=== PATIENT | male | born 1990 | race Hispanic/Latino ===

== ENCOUNTER 2021-08-22 19:30 | Emergency (ER) | payer SELFPAY ==
[2021-08-22 22:32] VITALS: BP 118/80
--- NOTE | 2021-08-22 22:42 | Emergency Department Report ---
ED General Adult HPI - General Chief complaint: Neck Pain/Injury Stated complaint: SPINAL/NECK INJURY Time Seen by Provider: 08/22/21 22:28 Source: patient Mode of arrival: Ambulatory Limitations: No Limitations - History of Present Illness Initial comments: 30-year-old male patient presents to the emergency department with complaints of neck pain and upper back pain starting yesterday. 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 There was no preceding fall, trauma, or injury. Patient has no known history of cervical disc issues or spinal stenosis. No medications prior to arrival. Denies fever, headache, rash, paresthesias, numbness, weakness, paralysis. Denies all other complaints at this time. - Related Data Previous Rx's Medication Instructions Recorded Last Taken Type Lidocaine [Lidoderm] 1 each TP BID #20 adh..patch 08/22/21 Unknown Rx Naproxen 500 mg PO BID #20 tablet 08/22/21 Unknown Rx Allergies Allergy/AdvReac Type Severity Reaction Status Date / Time No Known Allergies Allergy Verified 08/22/21 22:24 ED Review of Systems ROS: Stated complaint: SPINAL/NECK INJURY Other details as noted in HPI Other: CARDIOVASCULAR: Negative for chest pain. PULMONARY: Negative for dyspnea. GASTROINTESTINAL: Negative for abdominal pain. MUSCULOSKELETAL: Positive for back pain and neck pain. NEUROLOGICAL: Negative for headache. INTEGUMENTARY: Negative for ecchymosis. ED Past Medical Hx - Past Medical History Previous Medical History?: No - Medications Home Medications: Home Medications Medication Instructions Recorded Confirmed Last Taken Type Lidocaine [Lidoderm] 1 each TP BID #20 adh..patch 08/22/21 Unknown Rx Naproxen 500 mg PO BID #20 tablet 08/22/21 Unknown Rx ED Physical Exam - General Limitations: No Limitations - Other Other exam information: General: Awake, appropriately interactive, no acute distress. Neck: Supple. Full range of motion intact. Bilateral paraspinal cervical and upper thoracic tenderness. No step-offs. No palpable muscle spasm. Cardiovascular: Normal peripheral perfusion. Pulmonary: No respiratory distress. Patient is speaking normally without use of accessory muscles. Skin: No apparent rashes or lesions. Neurological: No facial asymmetry. Speech is clear. Follows commands. Patient is alert and oriented. Strength and sensation intact throughout. Ambulatory without assistance. Gait is steady. No evidence of Didier syndrome. Musculoskeletal: Moves all four extremities spontaneously with normal range of motion. Psych: Cooperative. Appropriate mood and affect. ED Course Vital Signs 08/22/21 22:25 Temperature 98.5 F Pulse Rate 91 H Respiratory 20 Rate Blood Pressure 118/80 O2 Sat by Pulse 98 Oximetry ED Medical Decision Making - Medical Decision Making Differential diagnosis including but not limited to: sprain, strain, fracture, contusion, dislocation, spinal cord injury, disc herniation, cervical stenosis, meningitis, cervical artery dissection Patient meets none of the following criteria: age <16 years or > 65 years, extremity paresthesias, dangerous mechanism of injury, GCS < 15, unstable vital signs, acute paralysis, known vertebral disease, previous cervical spine injury. The following low-risk factors are present: sitting position in the emergency department, ambulatory without assistance, delayed (not immediate) onset neck pain, low risk mechanism of injury. Patient is able to actively rotate the neck 45 degrees left and right. Cervical spine cleared clinically per [facility]- Spine rule; no imaging required. Patient presents to the emergency department with complaints of nontraumatic neck and upper back pain. He is afebrile, hemodynamically stable, neurological exam is nonfocal, no signs of meningismus or vascular injury/occlusion. No clinical indication for further diagnostic work-up on an emergent basis at this time. Patient will be discharged home with appropriate analgesics and referred to appropriate specialist for close outpatient follow-up. Patient expressed understanding and is agreeable to plan of care. Lifestyle modifications discussed. Strict return precautions provided. The patient's neck pain is not associated with numbness, tingling, or loss of strength. The patient is afebrile and neurovascularly intact. No clinical evidence for acute nerve compression (such as cauda equine syndrome) or infection (such as epidural abscess). It has been explained to the patient that advanced imaging such as CT or MRI is not indicated at this time but should be considered if symptoms recur or worsen. Discharged home with appropriate pres criptions and instructions to follow up with appropriate specialist. Strict return precautions provided. Emphasized the importance of outpatient follow-up and specific signs/symptoms that should warrant immediate return to the emergency department. Patient expressed understanding and was given the opportunity to ask questions, all of which were satisfactorily answered prior to discharge home. Critical care attestation.: If time is entered above; I have spent that time in minutes in the direct care of this critically ill patient, excluding procedure time. ED Disposition Clinical Impression: Neck injury Qualifiers: Encounter type: initial encounter Qualified Code(s): S19.9XXA - Unspecified injury of neck, initial encounter Disposition: HOME / SELF CARE / HOMELESS Is pt being admited?: No Does the pt Need Aspirin: No Condition: Stable Instructions: Cervical Sprain Additional Instructions: Take Tylenol every 4 hours as needed for pain. Take Naprosyn twice daily with food as needed for pain. Apply Lidoderm patches to affected area as needed for pain. Apply heat to affected area as needed for pain. Gradually advance physical activity slowly as tolerated. Follow-up with [facility] this week. Call tomorrow to schedule an appointment. See referral information below. Return to the emergency department immediately for new or worsening symptoms. Specifically, return to the emergency department immediately for fever, headache, rash, abnormal bleeding/bruising, numbness, weakness, paralysis, or any other concerns. Prescriptions: Lidocaine [Lidoderm] 1 each TP BID #20 adh..patch Naproxen 500 mg PO BID #20 tablet Referrals: [facility] [Provider Group] - 3-5 Days Forms: Work/School Release Form(ED) Time of Disposition: 22:47
== END 2021-08-22 23:10 | disposition home or self-care (01) ==
LOC: ED 19:30
DX: S19.9XXA Unspecified injury of neck, initial encounter (principal); M54.9 Dorsalgia, unspecified; X58.XXXA Exposure to other specified factors, initial encounter; Y93.89 Activity, other specified; Y92.89 Other specified places as the place of occurrence of the external cause; Y99.8 Other external cause status
CPT/HCPCS: 99281